=== PATIENT | male | born 1945 | race Caucasian/White ===

== ENCOUNTER 2021-01-26 16:52 | Emergency (ER) | payer MEDICARE, OTHER ==
--- NOTE | 2021-01-28 02:53 | EDM.PDOC ---
ED HPI GENERAL MEDICAL PROBLEM - General Chief Complaint: Genitourinary Problem Stated Complaint: URINE RETENTION Time Seen by Provider: 01/26/21 17:05 Source of Information: Reports: Patient History Limitations: Reports: No Limitations - History of Present Illness INITIAL COMMENTS - FREE TEXT/NARRATIVE: Pt. states that he was unable to urinate for several hours and presented to ER. Pt. has a history of urinary retention/BPH and is on flomax. Pt. denies any hematuria, dysuria, fever, or chills. Complaints of suprapubic fullness. Pt. states that he has never required rescue catheterization for urinary retention in the past. Denies any trauma. Onset Date: 01/26/21 - Related Data Allergies Allergy/AdvReac Type Severity Reaction Status Date / Time No Known Allergies Allergy Verified 01/26/21 17:19 Home Meds: Home Meds Benazepril/Hydrochlorothiazide [Benazepril-Hctz 20-12.5 mg Tab] 1 each PO DAILY 01/26/21 [History] Metoprolol Succinate [Toprol XL] 25 mg PO DAILY 01/26/21 [History] Tamsulosin [Tamsulosin 24 Hr] 0.4 mg PO DAILY 01/26/21 [History] Verapamil [Verapamil ER] 240 mg PO DAILY 01/26/21 [History] atorvaSTATin [Lipitor] 20 mg PO BEDTIME 01/26/21 [History] Past Medical History Cardiovascular History: Reports: High Cholesterol, Hypertension Genitourinary History: Reports: BPH Social & Family History - Tobacco Use Tobacco Use Status *Q: Unknown Ever Used Tobacco ED ROS GENERAL - Review of Systems Review Of Systems: See Below Constitutional: Reports: No Symptoms HEENT: Reports: No Symptoms Respiratory: Reports: No Symptoms Cardiovascular: Reports: No Symptoms Endocrine: Reports: No Symptoms GI/Abdominal: Reports: No Symptoms : Reports: Urinary Retention. Denies: Discharge, Dysuria, Flank Pain, Frequency, Hematuria, Incontinence, Irregular Menses, Pain, Urgency Musculoskeletal: Reports: No Symptoms Skin: Reports: No Symptoms Neurological: Reports: No Symptoms Psychiatric: Reports: No Symptoms Hematologic/Lymphatic: Reports: No Symptoms Immunologic: Reports: No Symptoms ED EXAM, GENERAL - Physical Exam Exam: See Below Exam Limited By: No Limitations General Appearance: Alert, WD/WN, No Apparent Distress (Male) Exam: No Hernia, Normal Inspection, Other (bladder scan 450ml) Course - Vital Signs Last Recorded V/S: Last Vital Signs Temp 37.4 C 01/26/21 17:00 Pulse 93 01/26/21 17:00 Resp 16 01/26/21 17:00 BP 161/90 H 01/26/21 17:00 Pulse Ox 91 L 01/26/21 17:00 - Orders/Labs/Meds Labs: Laboratory Tests 01/26/21 Range/Units 17:29 Urine Color Yellow (YELLOW) Urine Appearance Clear (CLEAR) Urine pH 5.5 (5.0-8.0) Ur Specific [place] 1.015 Urine Protein Negative (NEGATIVE) mg/dL Urine Glucose (UA) Negative (NEGATIVE) mg/dL Urine Ketones Negative (NEGATIVE) mg/dL Urine Occult Blood Small H (NEGATIVE) Urine Nitrite Negative (NEGATIVE) Urine Bilirubin Negative (NEGATIVE) Urine Urobilinogen 0.2 (0.2) EU/dL Ur Leukocyte Esterase Negative (NEGATIVE) Urine RBC 0-5 (NOT SEEN) /HPF Urine WBC 0-5 (NOT SEEN) /HPF Ur Squamous Epith Cells Not seen (NOT SEEN) /HPF Urine Bacteria Rare (NOT SEEN) /HPF Urine Mucus Rare H (NOT SEEN) /LPF Departure - Departure Time of Disposition: 18:30 Disposition: Home, Self-Care 01 Clinical Impression: Urinary retention - Discharge Information Instructions: Acute Urinary Retention, Male, [id number] Referrals: Oskar Ruelas NP [Primary Care Provider] - Forms: ED Department Discharge Additional Instructions: Return to ER tomorrow for removal of catheter/leg bag. There was no evidence of infection in your urine. Continue with current medications. Recheck in clinic in 7-10 days, sooner if unable to urinate. - Problem List Review Problem List Initiated/Reviewed/Updated: Yes - Assessment/Plan Plan: Return to ER tomorrow for removal of catheter/leg bag. There was no evidence of infection in your urine. Continue with current medications. Recheck in clinic in 7-10 days, sooner if unable to urinate.
== END 2021-01-26 18:34 | disposition home or self-care (01) ==
LOC: VM.ED 16:52
DX: R33.9 Retention of urine, unspecified (principal); E78.00 Pure hypercholesterolemia, unspecified; I10 Essential (primary) hypertension; Z79.899 Other long term (current) drug therapy
CPT/HCPCS: 81001; 99283